=== PATIENT | male | born 1980 | race Hispanic/Latino ===

== ENCOUNTER 2022-08-31 02:48 | Emergency (ER) | payer OTHER ==
[~2022-08-31] VITALS: Ht 160 cm; Wt 86.2 kg
[2022-08-31] MEDS ORDERED: DIPH,PERTUSS(ACELL),TET VAC/PF 0.5 ML VIAL IM ONE (03:00)
[2022-08-31] MEDS ORDERED: LIDOCAINE HCL 1% 20 ML VIAL INJ SCH (03:00)
[2022-08-31] MEDS ORDERED: TETANUS/DIPHTHERIA TOXOID [ADULT] 0.5 ML VIAL IM ONE (03:30)
[2022-08-31] MEDS ORDERED: CEPH500B PO (03:38)
[2022-08-31] MEDS ORDERED: IBUP-1493 PO (03:38)
[2022-08-31 03:43] VITALS: BP 149/72
== END 2022-08-31 03:48 | disposition home or self-care (01) ==
LOC: EDH 02:48
DX: S61.412A Laceration without foreign body of left hand, initial encounter (principal); W25.XXXA Contact with sharp glass, initial encounter; Y93.89 Activity, other specified; Y92.89 Other specified places as the place of occurrence of the external cause; Y99.8 Other external cause status
CPT/HCPCS: 12002; 73130; 90471; 90714; 90715